=== PATIENT | male | born 1990 | race Caucasian/White ===

== ENCOUNTER 2019-04-07 12:35 | Emergency (ER) | payer MEDICAID ==
[~2019-04-07] VITALS: Ht 172.7 cm; Wt 79.5 kg
[2019-04-07 12:35] VITALS: Ht 172.7 cm; Wt 79.5 kg
[2019-04-07] MEDS ORDERED: LORAZEPAM 2 MG INJ IM STA (12:37)
[2019-04-07] MEDS ORDERED: HALOPERIDOL 5 MG INJ IM STA (12:37)
[2019-04-07] MEDS ORDERED: DIPHENHYDRAMINE 50 MG INJ IM ONE (13:00)
--- NOTE | 2019-04-07 14:18 | ERD ---
ER Documentation Chief Complaint Chief Complaint agitated possibly from subtance abuse HPI Is a 29-year-old male that was brought into the emergency department by [employer]. The patient was found walking around the streets in his underwear. He appeared very agitated. When EMS arrived the patient was diaphoretic. He stated he did use drugs but would not indicate when or what type of drug he had taken. He denied any suicidal homicidal thoughts or ideations. ROS All systems reviewed and are negative except as per history of present illness. PMhx/Soc Medical and Surgical Hx: pt denies Medical Hx, pt denies Surgical Hx Hx Alcohol Use: Yes Hx Substance Use: Yes Hx Tobacco Use: Yes Smoking Status: Current every day smoker Physical Exam Vitals Vital Signs Date Temp Pulse Resp B/P (MAP) Pulse Ox O2 O2 Flow FiO2 Time Delivery Rate 04/07/19 67 18 118/74 100 Room Air 18:20 (89) 04/07/19 105 18 117/78 96 Room Air 14:25 (91) 04/07/19 98.5 111 18 120/69 96 12:35 (86) Physical Exam Constitutional:Well-developed. Well-nourished. HEENT:Normocephalic. Atraumatic.Pupils were 5 mm equal round reactive to light bilaterally. Moist mucous membranes.No tonsillar exudates. Neck: No nuchal rigidity. No lymphadenopathy. No posterior cervical spine tenderness or step-offs. Respiratory: Not using accessory muscles of respiration.Lungs were clear to auscultation bilaterally. No rhonchi. No rales. No wheezing. Cardiovascular: tachycardic with regular rhythm.No murmurs. No rubs were appreciated.S1, S2 normal. Distal pulses are palpable 2+ bilaterally. GI: Abdomen was soft. Nontender. Non Distended. No pulsatile abdominal masses or bruits. No rebound. No guarding. Bowel sounds were present and normal. Muscle skeletal: Full range of motion of both the upper and lower extremities bilaterally.Normal muscle tone.No assymetrical calf tenderness or swelling. Skin: Diaphoretic. No petechia, no purpura. No lesions on the palms or the soles of the feet. No maculopapular rash. NEURO: Patient was alert, awake, oriented to person. Gait not observed as patient was too combative and altered. PSYCH: Patient was yelling, very agitated. Denied any suicidal homicidal thoughts or ideations. He was speaking random nonsensical words. Result Diagram: 04/07/19 1441 04/07/19 1440 Results 24 hrs Laboratory Tests Test 04/07/19 14:40 04/07/19 14:41 04/07/19 14:57 Sodium Level 141 mmol/L Potassium Level 4.0 mmol/L Chloride Level 103 mmol/L Carbon Dioxide Level 27 mmol/L Anion Gap 11 Blood Urea Nitrogen 48 mg/dl Creatinine 1.79 mg/dl Est Glomerular Filtrat 45 mL/min Rate mL/min Glucose Level 91 mg/dl Calcium Level 10.3 mg/dl White Blood Count 17.2 10^3/ul Red Blood Count 4.70 10^6/ul Hemoglobin 14.6 g/dl Hematocrit 43.1 % Mean Corpuscular Volume 91.7 fl Mean Corpuscular Hemoglobin 31.1 pg Mean Corpuscular 33.9 g/dl Hemoglobin Concent Red Cell Distribution Width 12.8 % Platelet Count 204 10^3/UL Mean Platelet Volume 9.3 fl Immature Granulocytes % 0.500 % Neutrophils % 83.6 % Lymphocytes % 7.5 % Monocytes % 8.1 % Eosinophils % 0.0 % Basophils % 0.3 % Nucleated Red Blood Cells % 0.0 /100WBC Immature Granulocytes # 0.090 10^3/ul Neutrophils # 14.4 10^3/ul Lymphocytes # 1.3 10^3/ul Monocytes # 1.4 10^3/ul Eosinophils # 0.0 10^3/ul Basophils # 0.1 10^3/ul Nucleated Red Blood Cells # 0.0 10^3/ul Prothrombin Time 13.3 Sec Prothrombin Time Ratio 1.0 INR International 1.00 Normalized Ratio Activated Partial Thromboplast 25.7 Sec Time Urine Color ANABEL Urine Clarity CLOUDY Urine pH 5.0 Urine Specific [place] 1.027 Urine Ketones 1+ mg/dL Urine Nitrite NEGATIVE mg/dL Urine Bilirubin NEGATIVE mg/dL Urine Urobilinogen NEGATIVE mg/dL Urine Leukocyte Esterase NEGATIVE Sirisha/ul Urine Microscopic RBC 4 /HPF Urine Microscopic WBC 7 /HPF Urine Squamous Epithelial Cells FEW /HPF Urine Mucus FEW /HPF Urine Hemoglobin 3+ mg/dL Urine Glucose NEGATIVE mg/dL Urine Total Protein 1+ mg/dl Urine Opiates Screen Negative Urine Barbiturates Negative Urine Amphetamines Screen POSITIVE Urine Benzodiazepines Screen Negative Urine Cocaine Screen Positive Urine Cannabinoids Positive Current Medications Medications Dose Sig/Gary Start Time Status Last (Trade) Ordered Route PRN Stop Time Admin Dose Reason Admin Lorazepam 2 mg ONCE STAT 04/07/19 DC 04/07/19 (Ativan) IM 12:37 13:34 04/07/19 12:39 Haloperidol 5 mg ONCE STAT 04/07/19 DC 04/07/19 (Haldol) IM 12:37 13:34 04/07/19 12:39 50 mg ONCE ONCE 04/07/19 DC 04/07/19 Diphenhydrami IM 13:00 13:34 ne HCl 04/07/19 13:01 (Benadryl) Procedures/MDM This patient presented to the emergency department with acute psychosis and my differential diagnosis included but was not limited to ruling out life threatening causes of acute psychosis such as Wernickes encephalopathy, hypoxia, hypoglycemia, hypertensive encephalopathy, intracerebral hemorrhage, meningitis, poisoning. The patient did become severely agitated during medical assessment. Reassurance and verbal de-escalation were unsuccessful in calming the patient down. The ag itation was impeding medical evaluation and treatment, with potential for the patient to harm themselves or others; therefore, pharmacological sedation was required. The patient received Haldol Ativan and Benadryl. His clinical presentation did appear to be a result of amphetamine abuse. However the urine drug screen is currently pending. There was a delay in receiving the ancillary laboratory work given that the patient was extremely combative. The patient will remain in the emergency department until clinically sober. The patient never expressed suicidal thoughts ideations. Critical Care: Time: 65 minutes Treatments/Evaluations: Close monitoring and treatment of unstable vital signs, cardiorespiratory, and neurologic status, while maintaining tight balance of fluid, respiratory, and cardiac interventions. Time does not include performing any of the above billable procedures. Patient's creatinine came back a bit high. We will give him 2 L of normal saline. For some reason his electrolytes and renal function were canceled so I had ordered some. The patient is still asleep and we will have him reassessed when she is awake alert oriented and conversive. If he is stable psychologically will discharge home. Dr. Dang has papers on his chart for DC as needed Departure Diagnosis: Primary Impression: Amphetamine abuse Additional Impression: Psychosis Psychosis type: unspecified psychosis type Qualified Codes: F29 - Unspecified psychosis not due to a substance or known physiological condition Condition: AISHA Bassett MD Apr 07, 2019 14:18 SHANON ARROYO DO Apr 07, 2019 19:28
[2019-04-07] MEDS ORDERED: SOD CHLORIDE 0.9% 1,000 ML IV STA ×2 (19:26)
[2019-04-08 00:15] VITALS: BP 122/71; PULSE 74; RESP 20
== END 2019-04-08 00:15 | disposition home or self-care (01) ==
LOC: E/R 12:35 → EDBD 12:35 → E/R 04-08 00:15
DX: F15.159 Other stimulant abuse with stimulant-induced psychotic disorder, unspecified (principal); F17.210 Nicotine dependence, cigarettes, uncomplicated; R40.2142 Coma scale, eyes open, spontaneous, at arrival to emergency department; R40.2362 Coma scale, best motor response, obeys commands, at arrival to emergency department; R40.2232 Coma scale, best verbal response, inappropriate words, at arrival to emergency department; R94.02 Abnormal brain scan
CPT/HCPCS: 70450; 80048; 80307; 81001; 85025; 85610; 85730; J1200; J1630; J2060; J7030; 36415; 96372